=== PATIENT | female | born 1960 | race Two or more races ===

== ENCOUNTER → 2024-03-19 | Day surgery (SDC) | payer MEDICAID ==
[~2024-03-19] MED LIST: AMLO5TAB88 PO; VITAMIN D PO
== END | disposition home or self-care (01) ==
LOC: RAD 09:20 → EDUNIT# 10:00
PROVIDERS: ATTEND Specialist
DX: C50.912 Malignant neoplasm of unspecified site of left female breast (principal); Z79.899 Other long term (current) drug therapy; Z98.890 Other specified postprocedural states
CPT/HCPCS: 19281; A4648

== ENCOUNTER → 2024-03-20 | Day surgery (SDC) | payer MEDICAID ==
[~2024-03-20] VITALS: Ht 149.9 cm; Wt 54.4 kg
[~2024-03-20] MED LIST changes: +BUPIVACAINE HCL/PF 0.5% (5MG/ML) 10ML ONE; +CEFAZOLIN SODIUM 1000MG/VIAL ONE; +FENTANYL CITRATE/PF 50MCG/ML 2ML VIAL IV PRN; +FENTANYL CITRATE/PF 50MCG/ML 2ML VIAL ONE; +HYDROMORPHONE HCL/PF 2MG/ML CPJ IV PRN; +KETOROLAC 60MG/2ML VIAL IM ONE; +LIDOCAINE HCL 1% 10 MG/ML 10ML VIAL ONE; +MEPERIDINE HCL/PF 25MG/ML CPJ IV PRN; +MIDAZOLAM HCL 2 MG/2 ML VIAL ONE; +ONDANSETRON HCL 4MG/2ML INJ IV PRN; +ONDANSETRON HCL 4MG/2ML INJ ONE; +PROPOFOL 200MG/20ML VIAL IV ONE; +SKIN ADHESIVE 0.7 GM EA TOP ONE; +SODIUM BICARBONATE 4% (2.4MEQ) 5ML VIAL IV ONE; +SODIUM CHLORIDE 0.9% 1,000 ML IV SCH
[2024-03-20] MEDS: LACTATED RINGERS 1,000 ML IV SCH (11:30)
[2024-03-20 17:49] VITALS: BP 145/82; PULSE 65; RESP 22
[2024-03-20] MEDS: HYDROCODONE/ACETAMINOPHEN 5/325MG TABLET PO PRN (17:49)
== END | disposition home or self-care (01) ==
LOC: OR 10:17
PROVIDERS: ATTEND Specialist
DX: C50.912 Malignant neoplasm of unspecified site of left female breast (principal); I10 Essential (primary) hypertension; Z79.899 Other long term (current) drug therapy; Z98.890 Other specified postprocedural states
CPT/HCPCS: 19125; 88307; 76098; J3490 ×4; J3010; J0690; J1885; J2250; J2405; J2704

== ENCOUNTER → 2024-04-30 | Day surgery (SDC) | payer BC ==
[~2024-04-30] VITALS: Ht 30.5 cm; Wt 0.5 kg
[~2024-04-30] MED LIST changes: -CEFAZOLIN SODIUM 1000MG/VIAL ONE; +DEXAMETHASONE 4MG/ML 1ML VIAL ONE; -FENTANYL CITRATE/PF 50MCG/ML 2ML VIAL IV PRN; +KETOROLAC 30MG/ML VIAL IV NR; -KETOROLAC 60MG/2ML VIAL IM ONE; +LABETALOL 5MG/ML 4ML INJ IV PRN; -LIDOCAINE HCL 1% 10 MG/ML 10ML VIAL ONE; -ONDANSETRON HCL 4MG/2ML INJ ONE; -SODIUM BICARBONATE 4% (2.4MEQ) 5ML VIAL IV ONE; -SODIUM CHLORIDE 0.9% 1,000 ML IV SCH
[2024-04-30] MEDS: LACTATED RINGERS 1,000 ML IV SCH (06:43)
== END | disposition home or self-care (01) ==
LOC: OR 05:41
PROVIDERS: ATTEND Specialist
DX: C50.912 Malignant neoplasm of unspecified site of left female breast (principal); I10 Essential (primary) hypertension; Z79.899 Other long term (current) drug therapy; Z98.890 Other specified postprocedural states
CPT/HCPCS: 19120; 93005; 88305; J3010; J3490; J1100; J2250; J2704